=== PATIENT | female | born 1965 | race Two or more races ===

== ENCOUNTER 2018-04-02 10:15 | Outpatient (AMBR) | payer MEDICARE, MEDICAID, SELFPAY ==
--- NOTE | 2018-04-02 12:29 | PTNOTE_ITS ---
PT OP Initial Eval Patient Information Visit Reasons: lower leg Medical Diagnosis: M15.9 Treatment Dx #1: BLE Pain Treatment Dx #2: BLE Weakness Start of Care: 04/02/18 Date of Onset: 3 years ago Initial Assessment Subjective Pt is a 52 y/o female c/o chronic LEs pain started several years ago due to RA. Pt mention that she is bone on bone in the L knee and R ankle. Pt pain is 8/10 and because of the pain Pt has difficulty walking, transfer, standing, cooking, and cleaning. Pt mention that she is under the care of a oncologist orthopedic spcialist in [place] which she plans to get a total knee replacement in a few wks. Pt mention that her muscle atrophy on the left is getting worse but it's lack of use due to pain. Objective Left Knee AROM: 0 deg to 110 deg with pain Right Knee AROM: 0 deg to 120 deg Left Ankle AROM: all motions are WFL Right Ankle AROM: all motions are limited due to pain LEFS score: 90 % disabled Bilateral Knee MMTs: grossly 3-/5 Bilateral Ankle MMTs: grossly 3-/5 Assessment Pt demonstrate limited left knee and right ankle mobility deficits leading to decline function and difficulty with ambulation. During the evaluation Pt mention that she will be getting a knee replacement in a few weeks. Pt educated that if the knee replacement is going to be done soon Pt should wait until completion of the procedure prior to starting physical therapy due to having a hard therapy cap via medicare. Pt should save all visits to be able to perform aggressive rehab post op. Pt agree and will hold off on PT until completion of her operation. Pt was evaluated and d/c, thank you for your referrals. 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
== END 2018-04-02 11:26 | disposition home or self-care (01) ==
LOC: HODPTST 10:20
PROVIDERS: PCP Internal Medicine; Referring Provider Internal Medicine; Visit Provider Internal Medicine Rheumatology
DX: M79.662 Pain in left lower leg (principal); M79.661 Pain in right lower leg; R53.1 Weakness; G89.29 Other chronic pain; R26.2 Difficulty in walking, not elsewhere classified; I10 Essential (primary) hypertension
CPT/HCPCS: 97162; G8978; G8979; G8980

== ENCOUNTER → 2024-05-20 | Outpatient (CLI) | payer MEDICARE, MEDICAID, SELFPAY ==
[2024-05-20 09:33] LABS: Basophils # (Auto) 0.1 Thou/mm3 (0.0-0.2); Basophils % (Auto) 1 % (0-2.5); Eosinophils # (Auto) 0.2 Thou/mm3 (0.0-0.5); Eosinophils % (Auto) 2 % (0-10); Hematocrit 41.1 % (36.0-46.0); Immature Granulocytes % (Auto) 3 % (0-0); Lymphocytes # (Auto) 2.8 Thou/mm3 (1.0-4.8); Lymphocytes % (Auto) 27 % (10-50); Mean Corpuscular HGB Conc 31.6 g/dl (31.0-37.0); Mean Corpuscular Hemoglobin 26.1 pg (25.0-35.0); Mean Corpuscular Volume 83 fL (80-100); Monocytes # (Auto) 0.6 Thou/mm3 (0.0-0.8); Monocytes % (Auto) 6 % (0-12); Neutrophils # (Auto) 6.3 Thou/mm3 (1.8-7.7); Neutrophils % (Auto) 62 % (37-80); Nucleated Red Blood Cell % 0 /100 WBC (0); Platelet Count 287 Thou/mm3 (140-440); RDW Standard Deviation 51.1 fL (36.4-46.3); Red Blood Count 4.98 Miln/mm3 (4.00-5.20); White Blood Count 10.2 Thou/mm3 (3.6-11.0)
[2024-05-20 09:57] LABS: Sed Rate (ESR) 37 mm/hr (0-30)
[2024-05-20 09:58] LABS: Vitamin B12 649 pg/mL (211-911)
[2024-05-20 09:59] LABS: Alanine Aminotransferase 22 U/L (10-49); Albumin, Serum 4.1 gm/dL (3.5-5.0); Alkaline Phosphatase 132 U/L (46-116); Anion Gap 6 (7-16); Aspartate Amino Transferase 16 U/L (0-34); BUN/Creatinine Ratio 23 Ratio (12-20); Bilirubin,Total 0.4 mg/dL (0.3-1.2); Blood Urea Nitrogen 16 mg/dL (9-23); C-Reactive Protein 3.3 mg/dL (0.0-0.9); Calcium 9.1 mg/dL (8.3-10.6); Calcium (Corrected) 9.1 mg/dL (8.5-10.1); Carbon Dioxide 23.7 mMol/L (20.0-31.0); Chloride 108 mMol/L (98-107); Creatinine (Component) 0.7 mg/dL (0.6-1.3); Free T3 2.6 pg/mL (2.3-4.2); Free T4 (Free Thyroxine) 1.37 ng/dL (0.89-1.76); Globulin 2.1 gm/dL (2.3-3.5); Glucose 80 mg/dL (74-106); Osmolality,Calculated 275 (275-295); Potassium 4.2 mMol/L (3.4-5.1); Sodium 138 mMol/L (136-145); Thyroid Stimulating Hormone 3.68 uIU/mL (0.55-4.78); Total Protein 6.2 gm/dL (5.7-8.2); eGFR > 60 See Note
[2024-05-25 07:38] LABS: Vitamin D, 25-OH, D2 <4 ng/mL; Vitamin D, 25-OH, D3 38 ng/mL; Vitamin D, 25-OH, Total 38 ng/mL (30-100)
== END | disposition home or self-care (01) ==
LOC: COPL 08:41
PROVIDERS: PCP Family Medicine; Referring Provider Nurse Practitioner Family; Visit Provider Nurse Practitioner Family
DX: M05.79 Rheumatoid arthritis with rheumatoid factor of multiple sites without organ or systems involvement (principal); R53.83 Other fatigue; E03.9 Hypothyroidism, unspecified
CPT/HCPCS: 36415; 80053; 82306; 82607; 84439; 84443; 84481; 85025; 85652; 86140

== ENCOUNTER → 2024-06-16 | Outpatient (CLI) | payer MEDICARE, MEDICAID, SELFPAY ==
--- NOTE | 2024-06-16 07:45 | XR_ITS ---
Examination: Ultrasound soft tissue extremity left groin TECHNIQUE: By resolution grayscale sonographic images soft tissue left groin Exam date and time: June 16, 2024 0751 hours Indications left groin pain and swelling beginning 2 months ago. FINDINGS: Small lymph nodes in the left groin, the largest 17 x 16 mm IMPRESSION: Small lymph nodes in the left groin
[2024-06-16 08:36] LABS: Collection Type, Urine Clean Catch; RBC,Urine 0 /hpf (0-3)
[2024-06-16 09:20] LABS: Bilirubin,Urine Negative (Negative); Blood,Urine Negative (Negative); Clarity,Urine Clear (Clear/Hazy); Color,Urine Lt-Yellow (Lt Yel-Yel); Culture Indicated,Urine Not Indicated; Glucose, Urine Negative (Negative); Ketones,Urine Negative (Negative); Leukocyte Esterase,Urine Negative (Negative); Nitrite,Urine Negative (Negative); PH,Urine 6.5 (5.0-7.0); Protein,Urine Negative (Neg - Trace); Specific Gravity,Urine 1.012 (1.001-1.035); Squamous Epithelial Cell,Urine < 1 /hpf (0-5); Urobilinogen,Urine Negative mg/dL (0.0-1.0); WBC,Urine 2 /hpf (0-5)
[2024-06-16 09:33] LABS: Free T4 (Free Thyroxine) 1.41 ng/dL (0.89-1.76); Thyroid Stimulating Hormone 3.45 uIU/mL (0.55-4.78)
== END | disposition home or self-care (01) ==
LOC: CDIM 07:26 → COPL 08:08
PROVIDERS: Referring Provider Nurse Practitioner Family; Visit Provider Radiology Diagnostic Radiology
DX: R59.9 Enlarged lymph nodes, unspecified (principal); E03.9 Hypothyroidism, unspecified
CPT/HCPCS: 36415; 76882; 81001; 84439; 84443

== ENCOUNTER → 2024-07-07 | Outpatient (CLI) | payer MEDICARE, MEDICAID, SELFPAY ==
--- NOTE | 2024-07-07 16:30 | XR_ITS ---
Examination: Ultrasound soft tissue extremity left mid back TECHNIQUE: By resolution grayscale sonographic images soft tissue back Exam date and time: July 07, 2024 1643 hours INDICATIONS: Left outer mid back pain and tenderness note is beginning 3 months ago FINDINGS: Hypoechoic mass at the area concern, multiple, the largest 8 x 5 x 8 mm Also small lymph node in the soft tissue mid back on the left 6 x 4 x 7 mm IMPRESSION: BI-RADS Category 3: Probably benign findings Small soft tissue masses most consistent with lipomas in the soft tissue left back at the area concern, recommend continued 3-6 month follow-up ultrasound soft tissue
== END | disposition home or self-care (01) ==
LOC: CDIM 16:10
PROVIDERS: Referring Provider Nurse Practitioner Family; Visit Provider Nurse Practitioner Family
DX: R22.2 Localized swelling, mass and lump, trunk (principal)
CPT/HCPCS: 76604

== ENCOUNTER → 2024-07-29 | Outpatient (CLI) | payer MEDICARE, MEDICAID, SELFPAY ==
--- NOTE | 2024-07-29 09:28 | XR_ITS ---
Examination: PA lateral chest 2 views TECHNIQUE: Upright PA lateral chest 2 views Exam date and time: July 29, 2023 0948 hours Comparison May 04, 2024 INDICATIONS: Diagnosis COPD, coughing 2 weeks. FINDINGS: Normal heart size Scarring in the lingular segment No lobar pneumonia or pulmonary edema Prominent osteopenia IMPRESSION: No lobar pneumonia or pulmonary edema
[2024-07-29 10:41] LABS: Collection Type, Urine Clean Catch
[2024-07-29 10:57] LABS: Free T3 2.2 pg/mL (2.3-4.2); Free T4 (Free Thyroxine) 1.48 ng/dL (0.89-1.76); Thyroid Stimulating Hormone 3.58 uIU/mL (0.55-4.78)
[2024-07-29 11:37] LABS: Bilirubin,Urine Negative (Negative); Blood,Urine Negative (Negative); Clarity,Urine Clear (Clear/Hazy); Color,Urine Colorless (Lt Yel-Yel); Culture Indicated,Urine Not Indicated; Glucose, Urine Negative (Negative); Ketones,Urine Negative (Negative); Leukocyte Esterase,Urine Positive (Negative); Nitrite,Urine Negative (Negative); Protein,Urine Negative (Neg - Trace); RBC,Urine 1 /hpf (0-3); Specific Gravity,Urine 1.008 (1.001-1.035); Squamous Epithelial Cell,Urine 1 /hpf (0-5); Urobilinogen,Urine Negative mg/dL (0.0-1.0); WBC,Urine 5 /hpf (0-5)
== END | disposition home or self-care (01) ==
LOC: COPL 09:20
PROVIDERS: Internal Medicine; PCP Nurse Practitioner Family; Referring Provider Internal Medicine; Visit Provider Radiology Diagnostic Radiology
DX: J44.0 Chronic obstructive pulmonary disease with (acute) lower respiratory infection (principal); J20.9 Acute bronchitis, unspecified; J47.9 Bronchiectasis, uncomplicated; J84.10 Pulmonary fibrosis, unspecified; R91.8 Other nonspecific abnormal finding of lung field; R06.02 Shortness of breath; R05.3 Chronic cough; E03.9 Hypothyroidism, unspecified
CPT/HCPCS: 36415; 71046; 81001; 84439; 84443; 84481

== ENCOUNTER → 2024-08-20 | Outpatient (CLI) | payer MEDICARE, MEDICAID, SELFPAY ==
[2024-08-20 11:39] LABS: Basophils # (Auto) 0.1 Thou/mm3 (0.0-0.2); Basophils % (Auto) 1 % (0-2.5); Eosinophils # (Auto) 0.2 Thou/mm3 (0.0-0.5); Eosinophils % (Auto) 2 % (0-10); Hematocrit 43.8 % (36.0-46.0); Hemoglobin 13.9 g/dL (12.0-16.0); Immature Granulocytes % (Auto) 3 % (0-0); Immature Granulocytes Auto 0.38 Thou/mm3 (0.00-0.00); Lymphocytes # (Auto) 2.8 Thou/mm3 (1.0-4.8); Lymphocytes % (Auto) 24 % (10-50); Mean Corpuscular HGB Conc 31.7 g/dl (31.0-37.0); Mean Corpuscular Hemoglobin 26.8 pg (25.0-35.0); Mean Corpuscular Volume 84 fL (80-100); Monocytes # (Auto) 0.7 Thou/mm3 (0.0-0.8); Monocytes % (Auto) 6 % (0-12); Neutrophils # (Auto) 7.4 Thou/mm3 (1.8-7.7); Neutrophils % (Auto) 64 % (37-80); Nucleated Red Blood Cell % 0 /100 WBC (0); Platelet Count 253 Thou/mm3 (140-440); RDW Standard Deviation 52.7 fL (36.4-46.3); Red Blood Count 5.19 Miln/mm3 (4.00-5.20); White Blood Count 11.6 Thou/mm3 (3.6-11.0)
[2024-08-20 11:53] LABS: Alanine Aminotransferase 27 U/L (10-49); Albumin, Serum 4.3 gm/dL (3.5-5.0); Alkaline Phosphatase 142 U/L (46-116); Anion Gap 11 (7-16); Aspartate Amino Transferase 16 U/L (0-34); BUN/Creatinine Ratio 18 Ratio (12-20); Bilirubin,Total 0.5 mg/dL (0.3-1.2); Blood Urea Nitrogen 11 mg/dL (9-23); C-Reactive Protein 3.7 mg/dL (0.0-0.9); Calcium 9.5 mg/dL (8.3-10.6); Calcium (Corrected) 9.5 mg/dL (8.5-10.1); Carbon Dioxide 24.3 mMol/L (20.0-31.0); Chloride 106 mMol/L (98-107); Creatinine (Component) 0.6 mg/dL (0.6-1.3); Free T3 2.5 pg/mL (2.3-4.2); Free T4 (Free Thyroxine) 1.49 ng/dL (0.89-1.76); Globulin 2.2 gm/dL (2.3-3.5); Glucose 87 mg/dL (74-106); Osmolality,Calculated 279 (275-295); Potassium 3.8 mMol/L (3.4-5.1); Sodium 141 mMol/L (136-145); Thyroid Stimulating Hormone 3.34 uIU/mL (0.55-4.78); Total Protein 6.5 gm/dL (5.7-8.2); eGFR > 60 See Note
[2024-08-20 12:13] LABS: Sed Rate (ESR) 44 mm/hr (0-30)
== END | disposition home or self-care (01) ==
LOC: COPL 10:43
PROVIDERS: PCP Internal Medicine; Referring Provider Nurse Practitioner Family; Visit Provider Nurse Practitioner Family
DX: E03.9 Hypothyroidism, unspecified (principal); M05.79 Rheumatoid arthritis with rheumatoid factor of multiple sites without organ or systems involvement
CPT/HCPCS: 36415; 80053; 84439; 84443; 84481; 85025; 85652; 86140

== ENCOUNTER → 2024-09-21 | Outpatient (CLI) | payer MEDICARE, MEDICAID, SELFPAY ==
[2024-09-21 11:40] LABS: Collection Type, Urine Clean Catch
[2024-09-21 12:13] LABS: Vitamin B12 547 pg/mL (211-911); Vitamin D 25 Hydroxy Total 36.3 ng/mL (7.3-40.2)
[2024-09-21 12:14] LABS: Free T3 3.2 pg/mL (2.3-4.2); Free T4 (Free Thyroxine) 1.56 ng/dL (0.89-1.76); Thyroid Stimulating Hormone 1.07 uIU/mL (0.55-4.78)
[2024-09-21 12:14] LABS: Bilirubin,Urine Negative (Negative); Blood,Urine Negative (Negative); Clarity,Urine Clear (Clear/Hazy); Color,Urine Colorless (Lt Yel-Yel); Culture Indicated,Urine Not Indicated; Glucose, Urine Negative (Negative); Ketones,Urine Negative (Negative); Leukocyte Esterase,Urine Positive (Negative); Nitrite,Urine Negative (Negative); Protein,Urine Negative (Neg - Trace); RBC,Urine 1 /hpf (0-3); Specific Gravity,Urine 1.004 (1.001-1.035); Squamous Epithelial Cell,Urine < 1 /hpf (0-5); Urobilinogen,Urine Negative mg/dL (0.0-1.0); WBC,Urine 2 /hpf (0-5)
[2024-09-28 07:03] LABS: Vitamin B1 (Thiamine)* 12 nmol/L (8-30); Vitamin B6, Plasma* 6.4 ng/mL (2.1-21.7)
== END | disposition home or self-care (01) ==
LOC: COPL 10:53
PROVIDERS: PCP Internal Medicine; Referring Provider Internal Medicine; Visit Provider Nurse Practitioner Family
DX: E03.9 Hypothyroidism, unspecified (principal)
CPT/HCPCS: 36415; 81001; 82306; 82607; 84207; 84425; 84439; 84443; 84481

== ENCOUNTER → 2024-10-23 | Outpatient (CLI) | payer MEDICARE, MEDICAID, SELFPAY ==
[2024-10-23 11:02] LABS: Free T3 2.4 pg/mL (2.3-4.2); Free T4 (Free Thyroxine) 1.37 ng/dL (0.89-1.76); Thyroid Stimulating Hormone 4.86 uIU/mL (0.55-4.78)
[2024-10-30 11:21] LABS: Sjogren's antibody (SS-A) <1.0 NEG AI (<1.0 NEGATIVE)
[2024-11-02 07:14] LABS: ANA Pattern NUCLEAR, CENTROMERE; ANA Pattern NUCLEAR, HOMOGENEOUS; ANA Screen, IFA POSITIVE (NEGATIVE); Sjogren's Antibody (SS-B) <1.0 NEG AI (<1.0 NEGATIVE)
== END | disposition home or self-care (01) ==
PROVIDERS: PCP Internal Medicine; Referring Provider General Practice; Visit Provider General Practice
DX: E03.9 Hypothyroidism, unspecified (principal); L30.9 Dermatitis, unspecified
CPT/HCPCS: 36415; 84439; 84443; 84481; 86038; 86235

== ENCOUNTER → 2024-11-03 | Outpatient (CLI) | payer MEDICARE, MEDICAID, SELFPAY ==
[2024-11-03 10:04] LABS: Collection Type, Urine Clean Catch; RBC,Urine 0 /hpf (0-3); Squamous Epithelial Cell,Urine 0 /hpf (0-5)
[2024-11-03 10:28] LABS: Basophils # (Auto) 0.1 Thou/mm3 (0.0-0.2); Basophils % (Auto) 1 % (0-2.5); Eosinophils # (Auto) 0.2 Thou/mm3 (0.0-0.5); Eosinophils % (Auto) 2 % (0-10); Hemoglobin 13.3 g/dL (12.0-16.0); Immature Granulocytes % (Auto) 2 % (0-0); Immature Granulocytes Auto 0.22 Thou/mm3 (0.00-0.00); Lymphocytes % (Auto) 24 % (10-50); Mean Corpuscular HGB Conc 32.4 g/dl (31.0-37.0); Mean Corpuscular Hemoglobin 26.9 pg (25.0-35.0); Mean Corpuscular Volume 83 fL (80-100); Monocytes # (Auto) 0.7 Thou/mm3 (0.0-0.8); Monocytes % (Auto) 5 % (0-12); Neutrophils # (Auto) 8.1 Thou/mm3 (1.8-7.7); Neutrophils % (Auto) 66 % (37-80); Nucleated Red Blood Cell % 0 /100 WBC (0); Platelet Count 294 Thou/mm3 (140-440); RDW Standard Deviation 48.8 fL (36.4-46.3); Red Blood Count 4.95 Miln/mm3 (4.00-5.20); White Blood Count 12.2 Thou/mm3 (3.6-11.0)
[2024-11-03 10:44] LABS: Alanine Aminotransferase 22 U/L (10-49); Albumin, Serum 4.1 gm/dL (3.5-5.0); Albumin/Globulin Ratio 1.6 (1.2-2.2); Alkaline Phosphatase 128 U/L (46-116); Anion Gap 8 (7-16); Aspartate Amino Transferase 20 U/L (0-34); BUN/Creatinine Ratio 17 Ratio (12-20); Bilirubin,Total 0.7 mg/dL (0.3-1.2); Blood Urea Nitrogen 10 mg/dL (9-23); C-Reactive Protein 3.4 mg/dL (0.0-0.9); Calcium 8.5 mg/dL (8.3-10.6); Calcium (Corrected) 8.5 mg/dL (8.5-10.1); Carbon Dioxide 24.4 mMol/L (20.0-31.0); Chloride 107 mMol/L (98-107); Creatinine (Component) 0.6 mg/dL (0.6-1.3); Globulin 2.5 gm/dL (2.3-3.5); Glucose 85 mg/dL (74-106); Osmolality,Calculated 275 (275-295); Potassium 3.4 mMol/L (3.4-5.1); Sodium 139 mMol/L (136-145); Total Protein 6.6 gm/dL (5.7-8.2); eGFR > 60 See Note
[2024-11-03 10:54] LABS: Bilirubin,Urine Negative (Negative); Blood,Urine Negative (Negative); Clarity,Urine Clear (Clear/Hazy); Color,Urine Colorless (Lt Yel-Yel); Glucose, Urine Negative (Negative); Ketones,Urine Negative (Negative); Leukocyte Esterase,Urine Negative (Negative); Nitrite,Urine Negative (Negative); Protein,Urine Negative (Neg - Trace); Specific Gravity,Urine 1.004 (1.001-1.035); Urobilinogen,Urine Negative mg/dL (0.0-1.0); WBC,Urine < 1 /hpf (0-5)
[2024-11-03 10:58] LABS: Creatinine,Random Urine 24 mg/dL (30-125); Protein Total, Random Urine < 6 mg/dL (1-14)
[2024-11-03 11:06] LABS: Sed Rate (ESR) 64 mm/hr (0-30)
== END | disposition home or self-care (01) ==
LOC: COPL 08:52
PROVIDERS: PCP Internal Medicine; Referring Provider Internal Medicine Rheumatology; Visit Provider Internal Medicine Rheumatology
DX: M05.79 Rheumatoid arthritis with rheumatoid factor of multiple sites without organ or systems involvement (principal); N39.0 Urinary tract infection, site not specified
CPT/HCPCS: 36415; 80053; 81001; 82570; 84156; 85025; 85652; 86140; 87077; 87086; 87186

== ENCOUNTER → 2024-11-18 | Outpatient (CLI) | payer MEDICARE, MEDICAID, SELFPAY ==
[2024-11-18 09:13] LABS: Misc Send Out* See Sep Rpt
[2024-11-18 12:28] LABS: Cocci Serology, IgM Negative (Negative)
[2024-11-20 11:21] LABS: Cocci Serology, IgG Negative (Negative)
[2024-11-26 13:53] LABS: Sm Antibody <1.0 NEG AI (<1.0 NEGATIVE)
[2024-11-30 07:09] LABS: ANA Pattern NUCLEAR, CENTROMERE; ANA Pattern NUCLEAR, HOMOGENEOUS; ANA Screen, IFA POSITIVE (NEGATIVE); ANA Titer 1:40 titer; Complement Component C3* 165 mg/dL (83-193); Complement Component C4c* 11 mg/dL (15-57); DNA (ds) Antibody* 1 IU/mL; Sm/RNP Antibody <1.0 NEG AI (<1.0 NEGATIVE)
== END | disposition home or self-care (01) ==
PROVIDERS: PCP Family Medicine; Referring Provider Nurse Practitioner Family; Visit Provider Nurse Practitioner Family
DX: M05.79 Rheumatoid arthritis with rheumatoid factor of multiple sites without organ or systems involvement (principal); R76.8 Other specified abnormal immunological findings in serum
CPT/HCPCS: 36415; 86038; 86160; 86225; 86235; 86331; 86635

== ENCOUNTER → 2024-11-24 | Outpatient (CLI) | payer MEDICARE, MEDICAID, SELFPAY ==
[2024-11-24 12:03] LABS: Free T3 2.3 pg/mL (2.3-4.2); Free T4 (Free Thyroxine) 1.26 ng/dL (0.89-1.76); Thyroid Stimulating Hormone 1.79 uIU/mL (0.55-4.78)
== END | disposition home or self-care (01) ==
PROVIDERS: PCP Internal Medicine; Referring Provider Nurse Practitioner; Visit Provider Nurse Practitioner
DX: E03.9 Hypothyroidism, unspecified (principal)
CPT/HCPCS: 36415; 84439; 84443; 84481

== ENCOUNTER 2024-11-27 08:42 | Outpatient (AMB) | payer MEDICARE, MEDICAID, SELFPAY ==
[2024-11-27 08:58] VITALS: BP 180/91; PULSE 90; RESP 17; TEMP 36.9; O2SAT 93; BMI 33.2
--- NOTE | 2024-11-27 08:58 | ORTHONT_ITS ---
Vital signs 11/27/24 08:58 Height 1.5 m Height Method Stated Weight 74.559 kg Weight Measurement Method Standing Scale BMI 33.2 BP 180/91 H Blood Pressure Source Automatic Cuff Blood Pressure Location Right Upper Arm Position Sitting Respiration 17 Pulse 90 Pulse Source Monitor Temp 98.4 F Temp Source Temporal Artery Scan Pulse Oximetry (%) 93 L Oxygen Delivery Method Room Air Med/Allergies Allergies & Medications Allergies ciprofloxacin (From Cipro) Allergy (Severe, Verified 11/27/24 08:59) Cramping of the Muscles ALFALFA PRODUCTS Allergy (Severe, Uncoded 11/27/24 08:59) SEVERE HIVES Medication Reconciliation cyclosporine 0.05 % eye drops in a dropperette (Restasis) 1 drp ophthalmic (eye) Q12H DRY EYES 09/22/23 [History Confirmed 11/27/24] hydralazine 10 mg tablet 10 mg PO QPM HTN 09/22/23 [History Confirmed 11/27/24] levothyroxine 125 mcg tablet (Synthroid) 125 mcg PO QDAY 09/22/23 [History Confirmed 11/27/24] prednisone 1 mg tablet 3.5 mg PO BID RA 09/22/23 [History Confirmed 11/27/24] amoxicillin 875 mg-potassium clavulanate 125 mg tablet 1 tab PO BID #14 tabs 09/27/23 [Rx Confirmed 11/27/24] doxycycline hyclate 100 mg tablet 100 mg PO BID #14 tabs 09/27/23 [Rx Confirmed 11/27/24] ipratropium 0.5 mg-albuterol 3 mg (2.5 mg base)/3 mL nebulization soln 3 ml inhalation Q8H PRN shortness of breath #90 mL 09/27/23 [Rx Confirmed 11/27/24] Exam Exam Patient is in no acute distress and is cooperative with the examination today. Breathing is nonlabored. In no respiratory distress. Patient has no paraspinal tenderness. Spinal deformity cannot be appreciated. The gait of the patient is nonantalgic Bilateral extremities were evaluated and demonstrates sensation intact to light touch. Palpable pedal pulses are present. No significant edema is present. Bilateral knees were examined and the patient has full strength and range of motion.. The right hip was examined. Patient was able to flex to 90 degrees, adduct to 30 degrees, abduct to 40 degrees, internally rotate to 10 degrees, and externally rotate to 20 degrees. Patient has a negative logroll. Stinchfield is negative. The patient is nontender diffusely to touch. The left hip was examined. Patient was able to flex to 90 degrees, adduct to 30 degrees, abduct to 40 degrees, internally rotate to 0 degrees, and externally rotate to 20 degrees. Patient has a negative logroll. The stinchfield is negative. An MRI of the left hip was reviewed. This demonstrates degenerative changes. There is no avascular necrosis Assessment and Plan Problem List (1) Rheumatoid arthritis involving left hip: Status: Acute Plan: Patient is a pleasant 59-year-old female with left hip rheumatoid arthritis. She reports that she has significant pain in her ankles as well which is limiting her weightbearing. I would like to get X-rays to better evaluate the arthritis We will see her back and likely pursue conservative means given her medical health Office Procedures GNS Level of Care Nursing/Assessment Patient Status: Initial/New Patient Nursing Assessment/Reassesment: Medication Reconciliation, Update PMH in EMR and Vital Signs Coordination of Care: Complex Care and Chronic Disease 1-5, Education Complex Pt/Fam, Consent,records obtained, informed consent, 1 Ins Authorization, Lab and Imaging orders, Results/Orders obtained and Staff clarify orders New Patient Charge New Patient Point Assignment: [id number] New Patient Point Charge: OLD TESTAMENT PROFESSOR Level 4 ([id number]) MA Intake Visit Data Collection New Patient or Established: Established Patient (seen at [facility] within 3 years) Reason for Visit:: LEFT HIP PAIN Seen by Clinical Staff ONLY (RN/MA): No Steam Turbine Assembler Required: No PCP or OBGYN visit in last 3 months: Yes Hx Now: No Do You Feel Safe at Home: Yes Authorities Contacted: N/A Questionairres Past Medical History Past Medical History Have you ever been diagnosed with any of the following: Cardiology Problems Congestive Heart Failure: No Hypertension: Yes Respiratory Problems Chronic Obstructive Pulmonary Disease (COPD): Yes Asthma: Yes Emphysema: Yes Pneumonia: Yes Tuberculosis: No Stomache/Intestinal Problems Gall Bladder Disease: Yes Gastroesophageal Reflux Disease: Yes Genital/Urinary Problems Renal Disease: No Kidney Stones: Yes Reproductive Problems Endometriosis: No Pelvic Inflammatory Disease: No Previous Pregnancies: Yes Musculoskeletal Problems Rheumatoid Arthritis: Yes Endocrine Problems Diabetes Mellitus Type 1: No Diabetes Mellitus Type 2: No Hypothyroidism: Yes Blood Problems Sickle Cell Disease: No Other Problems Hospitalization: No Down Syndrome: No Developmental Delay: No Falls: No Blood Transfusions: Yes Blood Transfusion Reaction: No Anesthesia Reactions: No MRSA: No VRSA: No Vancomycin-Resistant Enterococci: No Clostridium Difficile: No Cancer: No Subjective Visit Visit for: new patient and hip (LEFT HIP) Immunization / Flu Flu Vaccine in the Last 12 Months: No Flu Vaccine Exclusion Criteria: Refused by Patient History of Present Illness Chief complaint: Left hip pain Enedelia is a pleasant 59-year-old female with history of severe rheumatoid arthritis. She is on multiple Biologics in the past. She is now just on prednisone as she has had lung issues from the Remicade. She is at high risk for medical complications as she has medical issues that are quite severe. She is also in a electric wheelchair pretty much at all times. She does stand for transfers. She reports that she has severe ankle pain as well because of her rheumatoid arthritis and she does not think that she would be able to walk even if we were to fix her hip Personal History Red flag PMH: none Pain Pain level (0-10): 10 Pain duration: LESS THAN A YEAR Pain location: groin Pain quality: shocking Pain timing: increases with activity (WHILE WALKING ) Associated signs & symptoms: none Ambulatory data Ambulatory device: other (specify) (ELECTRIC WHEELCHAIR ) Walking distance (minutes): 1 Treatments Number of previous injections: 1 Improvement with previous injections: No Number of Physical Therapy sessions: 0 Improvement with NSAIDS: n/a Review of Systems Review of Systems: All systems negative unless otherwise noted in HPI.
--- NOTE | 2024-11-27 09:09 | XR_ITS ---
Examination:Left hip AP, lateral, AP pelvis 3 views Technique: Hip AP lateral, AP pelvis, 3 views Exam date and time:November 27, 2024 0913 hours INDICATIONS: Left hip pain beginning 7 months ago FINDINGS: Advanced left hip osteoarthritis, severe joint space narrowing Sclerosis involving the femoral head suspicious for avascular necrosis Prominent osteopenia Bones of the pelvis right hip intact Moderate narrowing right hip joint IMPRESSION: Advanced left hip osteoarthritis Suspicious for left femoral head avascular necrosis.
== END 2024-11-27 09:18 | disposition home or self-care (01) ==
PROVIDERS: PCP Internal Medicine Rheumatology; Referring Provider Internal Medicine Rheumatology; Supervising Provider Orthopaedic Surgery Adult Reconstructive Orthopaedic Surgery; Visit Provider Orthopaedic Surgery Adult Reconstructive Orthopaedic Surgery
DX: M06.852 Other specified rheumatoid arthritis, left hip (principal); M25.572 Pain in left ankle and joints of left foot; M25.571 Pain in right ankle and joints of right foot; I10 Essential (primary) hypertension; K21.9 Gastro-esophageal reflux disease without esophagitis; E03.9 Hypothyroidism, unspecified
CPT/HCPCS: 73502; 99204; G0463

== ENCOUNTER 2024-12-22 08:38 | Outpatient (AMB) | payer MEDICARE, MEDICAID, SELFPAY ==
[2024-12-22 08:56] VITALS: BP 149/93; PULSE 84; RESP 16; TEMP 36.7; O2SAT 97; BMI 33.6
--- NOTE | 2024-12-22 08:56 | PD.ORTHCLVIS ---
Vital signs 12/22/24 08:56 Height 1.5 m Height Method Stated Weight 75.75 kg Weight Measurement Method Estimated by Patient BMI 33.6 BP 149/93 H Blood Pressure Source Automatic Cuff Blood Pressure Location Left Upper Arm Position Sitting Respiration 16 Pulse 84 Pulse Source Monitor Temp 98.1 F Temp Source Temporal Artery Scan Pulse Oximetry (%) 97 Oxygen Delivery Method Room Air Med/Allergies Allergies & Medications Allergies ciprofloxacin (From Cipro) Allergy (Severe, Verified 12/22/24 08:57) Cramping of the Muscles ALFALFA PRODUCTS Allergy (Severe, Uncoded 12/22/24 08:57) SEVERE HIVES Medication Reconciliation cyclosporine 0.05 % eye drops in a dropperette (Restasis) 1 drp ophthalmic (eye) Q12H DRY EYES 09/22/23 [History Confirmed 12/22/24] hydralazine 10 mg tablet 10 mg PO QPM HTN 09/22/23 [History Confirmed 12/22/24] levothyroxine 125 mcg tablet (Synthroid) 125 mcg PO QDAY 09/22/23 [History Confirmed 12/22/24] prednisone 1 mg tablet 3.5 mg PO BID RA 09/22/23 [History Confirmed 12/22/24] amoxicillin 875 mg-potassium clavulanate 125 mg tablet 1 tab PO BID #14 tabs 09/27/23 [Rx Confirmed 12/22/24] doxycycline hyclate 100 mg tablet 100 mg PO BID #14 tabs 09/27/23 [Rx Confirmed 12/22/24] ipratropium 0.5 mg-albuterol 3 mg (2.5 mg base)/3 mL nebulization soln 3 ml inhalation Q8H PRN shortness of breath #90 mL 09/27/23 [Rx Confirmed 12/22/24] Exam Exam Patient is in no acute distress and is cooperative with the examination today. Breathing is nonlabored. In no respiratory distress. Patient has no paraspinal tenderness. Spinal deformity cannot be appreciated. The gait of the patient is nonantalgic Bilateral extremities were evaluated and demonstrates sensation intact to light touch. Palpable pedal pulses are present. No significant edema is present. Bilateral knees were examined and the patient has full strength and range of motion.. The right hip was examined. Patient was able to flex to 90 degrees, adduct to 30 degrees, abduct to 40 degrees, internally rotate to 10 degrees, and externally rotate to 20 degrees. Patient has a negative logroll. Stinchfield is negative. The patient is nontender diffusely to touch. The left hip was examined. Patient was able to flex to 90 degrees, adduct to 30 degrees, abduct to 40 degrees, internally rotate to 0 degrees, and externally rotate to 20 degrees. Patient has a negative logroll. The stinchfield is negative. An MRI of the left hip was reviewed. This demonstrates degenerative changes. There is no avascular necrosis X-rays of the left demonstrates complete obliteration of the superior and inferior joint space consistent with rheumatoid arthritis Assessment and Plan Problem List (1) Rheumatoid arthritis involving left hip: Status: Acute Plan: Patient is a pleasant 59-year-old female with left hip rheumatoid arthritis. She reports that she has significant pain in her ankles as well which is limiting her weightbearing. She has significant left hip rheumatoid arthritis with degenerative changes. We discussed total hip replacement is reasonable option. She does have significant medical issues and is on home oxygen. She is not sure how well she will do and is seeing a cost estimating clerk in a month. We discussed that the main reason to do this with IV pain relief as her function is already quite limited. We also discussed that she is at high risk for complications given her rheumatoid arthritis history Office Procedures GNS Level of Care Nursing/Assessment Patient Status: Established Patient Nursing Assessment/Reassesment: Medication Reconciliation, Update PMH in EMR and Vital Signs Coordination of Care: Complex Care and Chronic Disease 1-5, Education Complex Pt/Fam, Consent,records obtained, informed consent, Results/Orders obtained and Staff clarify orders Established Patient Charge Established Patient Point Assignment: 95 Established Patient Point Charge: Level 3 (80-115) MA Intake Visit Data Collection New Patient or Established: Established Patient (seen at [facility] within 3 years) Reason for Visit:: LEFT HIP XRAYS Seen by Clinical Staff ONLY (RN/MA): No Astronomy Teacher Required: No PCP or OBGYN visit in last 3 months: Yes Hx Now: No Do You Feel Safe at Home: Yes Authorities Contacted: N/A Questionairres Past Medical History Past Medical History Have you ever been diagnosed with any of the following: Cardiology Problems Congestive Heart Failure: No Hypertension: Yes Respiratory Problems Chronic Obstructive Pulmonary Disease (COPD): Yes Asthma: Yes Emphysema: Yes Pneumonia: Yes Tuberculosis: No Smoking: No Smoking Exposure: No Tobacco Use: No Stomache/Intestinal Problems Gall Bladder Disease: Yes Gastroesophageal Reflux Disease: Yes Genital/Urinary Problems Renal Disease: No Kidney Stones: Yes Reproductive Problems Endometriosis: No Pelvic Inflammatory Disease: No Previous Pregnancies: Yes Musculoskeletal Problems Rheumatoid Arthritis: Yes Endocrine Problems Diabetes Mellitus Type 1: No Diabetes Mellitus Type 2: No Hypothyroidism: Yes Blood Problems Sickle Cell Disease: No Other Problems Hospitalization: No Down Syndrome: No Developmental Delay: No Falls: No Blood Transfusions: Yes Blood Transfusion Reaction: No Anesthesia Reactions: No MRSA: No VRSA: No Vancomycin-Resistant Enterococci: No Clostridium Difficile: No Cancer: No Subjective Visit Visit for: follow up visit and hip (LEFT HIP) Immunization / Flu Flu Vaccine in the Last 12 Months: No Flu Vaccine Exclusion Criteria: Refused by Patient History of Present Illness Chief complaint: Left hip pain Enedelai is a pleasant 59-year-old female with history of severe rheumatoid arthritis. She is on multiple Biologics in the past. She is now just on prednisone as she has had lung issues from the Remicade. She is at high risk for medical complications as she has medical issues that are quite severe. She is also in a electric wheelchair pretty much at all times. She does stand for transfers. She reports that she has severe ankle pain as well because of her rheumatoid arthritis and she does not think that she would be able to walk even if we were to fix her hip Personal History Red flag PMH: none Pain Pain level (0-10): 10 Pain duration: LESS THAN A YEAR Pain location: groin Pain quality: sharp and other (specify) (SWELLING) Pain timing: increases with activity Associated signs & symptoms: none Ambulatory data Ambulatory device: other (specify) (WHEELCHAIR ) Walking distance (minutes): 5 Treatments Number of previous injections: 0 Improvement with previous injections: No Number of Physical Therapy sessions: 0 Improvement with NSAIDS: n/a Review of Systems Review of Systems: All systems negative unless otherwise noted in HPI.
== END 2024-12-22 09:47 | disposition home or self-care (01) ==
LOC: HODSRG 08:38
PROVIDERS: PCP Internal Medicine Rheumatology; Referring Provider Internal Medicine Rheumatology; Supervising Provider Orthopaedic Surgery Adult Reconstructive Orthopaedic Surgery; Visit Provider Orthopaedic Surgery Adult Reconstructive Orthopaedic Surgery
DX: M06.852 Other specified rheumatoid arthritis, left hip (principal); M25.572 Pain in left ankle and joints of left foot; M25.571 Pain in right ankle and joints of right foot; I10 Essential (primary) hypertension; J44.9 Chronic obstructive pulmonary disease, unspecified; K21.9 Gastro-esophageal reflux disease without esophagitis; E03.9 Hypothyroidism, unspecified
CPT/HCPCS: 99213; G0463

== ENCOUNTER → 2024-12-22 | Outpatient (CLI) | payer MEDICARE, MEDICAID, SELFPAY ==
[2024-12-22 11:13] LABS: Free T3 2.4 pg/mL (2.3-4.2); Free T4 (Free Thyroxine) 1.43 ng/dL (0.89-1.76); Thyroid Stimulating Hormone 2.58 uIU/mL (0.55-4.78)
== END | disposition home or self-care (01) ==
PROVIDERS: PCP Internal Medicine; Referring Provider Nurse Practitioner; Visit Provider Nurse Practitioner
DX: E03.9 Hypothyroidism, unspecified (principal)
CPT/HCPCS: 36415; 84439; 84443; 84481

== ENCOUNTER → 2025-01-20 | Outpatient (CLI) | payer MEDICARE, MEDICAID, SELFPAY ==
[2025-01-20 10:53] LABS: Glucose Estimated Average 120 mg/dL (80-131); Hemoglobin A1C 5.8 % Hgb (4.8-6.0)
[2025-01-20 11:10] LABS: Alanine Aminotransferase 18 U/L (10-49); Albumin, Serum 4.1 gm/dL (3.5-5.0); Albumin/Globulin Ratio 1.7 (1.2-2.2); Alkaline Phosphatase 125 U/L (46-116); Anion Gap 12 (7-16); Aspartate Amino Transferase 19 U/L (0-34); BUN/Creatinine Ratio 14 Ratio (12-20); Bilirubin,Direct < 0.1 mg/dL (0.0-0.3); Bilirubin,Total 0.4 mg/dL (0.3-1.2); Blood Urea Nitrogen 10 mg/dL (9-23); Calcium 9.0 mg/dL (8.3-10.6); Calcium (Corrected) 9.0 mg/dL (8.5-10.1); Carbon Dioxide 23.3 mMol/L (20.0-31.0); Chloride 108 mMol/L (98-107); Creatinine (Component) 0.7 mg/dL (0.6-1.3); Free T3 2.0 pg/mL (2.3-4.2); Free T4 (Free Thyroxine) 1.37 ng/dL (0.89-1.76); Globulin 2.4 gm/dL (2.3-3.5); Glucose 87 mg/dL (74-106); Osmolality,Calculated 282 (275-295); Potassium 4.2 mMol/L (3.4-5.1); Sodium 143 mMol/L (136-145); Thyroid Stimulating Hormone 4.31 uIU/mL (0.55-4.78); Total Protein 6.5 gm/dL (5.7-8.2); eGFR > 60 See Note
== END | disposition home or self-care (01) ==
LOC: COPL 08:39
PROVIDERS: PCP Internal Medicine; Referring Provider Specialist; Visit Provider Nurse Practitioner
DX: K76.0 Fatty (change of) liver, not elsewhere classified (principal); E03.9 Hypothyroidism, unspecified
CPT/HCPCS: 36415; 80053; 82248; 83036; 84439; 84443; 84481

== ENCOUNTER → 2025-02-12 | Outpatient (CLI) | payer MEDICARE, MEDICAID, SELFPAY ==
--- NOTE | 2025-02-12 08:45 | XR_ITS ---
Examination: Diagnostic digital mammography, unilateral, left Computer aided detection 3-D breast Tomosynthesis, unilateral Date and time of exam: February 12, 2025 0846 hours INDICATIONS: Mammogram 03/25/2024 14 mm focal asymmetry upper outer left breast anterior depth, 16 mm focal asymmetry upper outer left breast Technique: Nonmagnified MLO, CC views of the left breast have been obtained, reconstructed from 3-D Tomosynthesis images. R2 computer aided detection program utilized for evaluation of suspicious masses and/or abnormal calcifications. 3-D Tomosynthesis images obtained. Findings: Scattered areas of fibroglandular density 12 mm focal asymmetry remains outer left breast on the spot compression CC views Impression: BI-RADS category 0: Incomplete: Need additional imaging evaluation Recommend follow-up repeat left breast sonography
== END | disposition home or self-care (01) ==
LOC: CDIM 08:26
PROVIDERS: PCP Internal Medicine; Referring Provider Internal Medicine; Visit Provider Internal Medicine
DX: R92.8 Other abnormal and inconclusive findings on diagnostic imaging of breast (principal)
CPT/HCPCS: 77061; 77065; G0279

== ENCOUNTER → 2025-02-22 | Outpatient (CLI) | payer MEDICARE, MEDICAID, SELFPAY ==
[2025-02-22 11:13] LABS: Basophils # (Auto) 0.1 Thou/mm3 (0.0-0.2); Basophils % (Auto) 1 % (0-2.5); Eosinophils # (Auto) 0.3 Thou/mm3 (0.0-0.5); Eosinophils % (Auto) 2 % (0-10); Hematocrit 42.3 % (36.0-46.0); Hemoglobin 13.6 g/dL (12.0-16.0); Immature Granulocytes Auto 0.30 Thou/mm3 (0.00-0.00); Lymphocytes # (Auto) 2.6 Thou/mm3 (1.0-4.8); Lymphocytes % (Auto) 16 % (10-50); Mean Corpuscular HGB Conc 32.2 g/dl (31.0-37.0); Mean Corpuscular Hemoglobin 27.7 pg (25.0-35.0); Mean Corpuscular Volume 86 fL (80-100); Monocytes # (Auto) 0.9 Thou/mm3 (0.0-0.8); Monocytes % (Auto) 6 % (0-12); Neutrophils # (Auto) 12.4 Thou/mm3 (1.8-7.7); Neutrophils % (Auto) 75 % (37-80); Nucleated Red Blood Cell # 0.00 Thou/mm3 (0.00-0.00); Nucleated Red Blood Cell % 0 /100 WBC (0); Platelet Count 254 Thou/mm3 (140-440); RDW Standard Deviation 50.9 fL (36.4-46.3); Red Blood Count 4.91 Miln/mm3 (4.00-5.20); White Blood Count 16.6 Thou/mm3 (3.6-11.0)
[2025-02-22 11:37] LABS: Alanine Aminotransferase 19 U/L (10-49); Albumin, Serum 4.0 gm/dL (3.5-5.0); Albumin/Globulin Ratio 2.1 (1.2-2.2); Alkaline Phosphatase 128 U/L (46-116); Anion Gap 13 (7-16); Aspartate Amino Transferase 17 U/L (0-34); BUN/Creatinine Ratio 16 Ratio (12-20); Bilirubin,Total 0.6 mg/dL (0.3-1.2); Blood Urea Nitrogen 11 mg/dL (9-23); C-Reactive Protein 1.7 mg/dL (0.0-0.9); Calcium 9.4 mg/dL (8.3-10.6); Calcium (Corrected) 9.4 mg/dL (8.5-10.1); Carbon Dioxide 21.8 mMol/L (20.0-31.0); Chloride 106 mMol/L (98-107); Creatinine (Component) 0.7 mg/dL (0.6-1.3); Free T3 2.3 pg/mL (2.3-4.2); Globulin 1.9 gm/dL (2.3-3.5); Glucose 96 mg/dL (74-106); Osmolality,Calculated 280 (275-295); Potassium 3.8 mMol/L (3.4-5.1); Sodium 141 mMol/L (136-145); T4 (Thyroxine) 10.5 mcg/dL (4.5-10.9); Thyroid Stimulating Hormone 4.58 uIU/mL (0.55-4.78); Total Protein 5.9 gm/dL (5.7-8.2); eGFR > 60 See Note
[2025-02-22 11:38] LABS: Collection Type, Urine Clean Catch
[2025-02-22 11:49] LABS: Sed Rate (ESR) 48 mm/hr (0-30)
[2025-02-22 12:54] LABS: Bacteria,Urine Rare; Bilirubin,Urine Negative (Negative); Blood,Urine Negative (Negative); Clarity,Urine Clear (Clear/Hazy); Color,Urine Colorless (Lt Yel-Yel); Culture Indicated,Urine Not Indicated; Glucose, Urine Negative (Negative); Ketones,Urine Negative (Negative); Nitrite,Urine Negative (Negative); PH,Urine 6.5 (5.0-7.0); Protein,Urine Negative (Neg - Trace); RBC,Urine 1 /hpf (0-3); Specific Gravity,Urine 1.006 (1.001-1.035); Squamous Epithelial Cell,Urine 1 /hpf (0-5); Urobilinogen,Urine Negative mg/dL (0.0-1.0); WBC,Urine < 1 /hpf (0-5)
[2025-02-22 13:11] LABS: Leukocyte Esterase,Urine Trace (Negative)
== END | disposition home or self-care (01) ==
PROVIDERS: PCP Family Medicine; Visit Provider Nurse Practitioner Family
DX: E03.9 Hypothyroidism, unspecified (principal); M05.79 Rheumatoid arthritis with rheumatoid factor of multiple sites without organ or systems involvement; N39.0 Urinary tract infection, site not specified
CPT/HCPCS: 36415; 80053; 81001; 84436; 84443; 84481; 85025; 85652; 86140

== ENCOUNTER → 2025-03-11 | Outpatient (BNVA) | payer MEDICARE, MEDICAID, SELFPAY | END | disposition home or self-care (01) | PROVIDERS: PCP Family Medicine; Referring Provider Family Medicine; Visit Provider Urology | DX: N28.1 Cyst of kidney, acquired (principal); M06.9 Rheumatoid arthritis, unspecified; Z99.3 Dependence on wheelchair; E03.9 Hypothyroidism, unspecified; I10 Essential (primary) hypertension; E66.9 Obesity, unspecified; Z87.440 Personal history of urinary (tract) infections; K21.9 Gastro-esophageal reflux disease without esophagitis | CPT/HCPCS: 81003; 99212; G0463 ==

== ENCOUNTER → 2025-03-25 | Outpatient (CLI) | payer MEDICARE, MEDICAID, SELFPAY ==
[2025-03-25 10:11] LABS: Free T3 3.0 pg/mL (2.3-4.2); Free T4 (Free Thyroxine) 1.45 ng/dL (0.89-1.76); Thyroid Stimulating Hormone 1.94 uIU/mL (0.55-4.78); Vitamin B12 456 pg/mL (211-911)
[2025-03-31 07:05] LABS: Vitamin D, 25-OH, D2 <4 ng/mL; Vitamin D, 25-OH, D3 26 ng/mL; Vitamin D, 25-OH, Total 26 ng/mL (30-100)
== END | disposition home or self-care (01) ==
LOC: COPL 08:57
PROVIDERS: PCP Internal Medicine; Referring Provider Internal Medicine Rheumatology; Visit Provider Internal Medicine Rheumatology
DX: E03.9 Hypothyroidism, unspecified (principal); R53.83 Other fatigue
CPT/HCPCS: 36415; 82306; 82607; 84439; 84443; 84481

== ENCOUNTER → 2025-04-20 | Outpatient (CLI) | payer MEDICARE, MEDICAID, SELFPAY ==
--- NOTE | 2025-04-20 14:30 | XR_ITS ---
Examination: Breast ultrasound, unilateral, left complete Date and time of exam: April 20, 2025, 1413 hours INDICATIONS: Mammogram February 13, 2000 2512 mm focal asymmetry outer left breast Technique: Real-time moura scale ultrasonographic imaging performed left breast including all 4 quadrants as well as nipple retroareolar and axillary region. Findings: No cystic or solid mass IMPRESSION: BI-RADS Category 1 negative study
== END | disposition home or self-care (01) ==
LOC: CDIM 14:01
PROVIDERS: PCP Internal Medicine; Referring Provider Internal Medicine; Visit Provider Internal Medicine
DX: R92.8 Other abnormal and inconclusive findings on diagnostic imaging of breast (principal)
CPT/HCPCS: 76641

== ENCOUNTER → 2025-04-23 | Outpatient (CLI) | payer MEDICARE, MEDICAID, SELFPAY ==
[2025-04-23 11:13] LABS: Free T3 2.1 pg/mL (2.3-4.2); Thyroid Stimulating Hormone 2.81 uIU/mL (0.55-4.78)
[2025-04-23 11:21] LABS: T4 (Thyroxine) 10.1 mcg/dL (4.5-10.9)
== END | disposition home or self-care (01) ==
LOC: COPL 09:20
PROVIDERS: PCP Internal Medicine; Referring Provider Nurse Practitioner; Visit Provider Nurse Practitioner
DX: E03.9 Hypothyroidism, unspecified (principal)
CPT/HCPCS: 36415; 84436; 84443; 84481

== ENCOUNTER → 2025-05-24 | Outpatient (CLI) | payer MEDICARE, MEDICAID, SELFPAY ==
[2025-05-24 10:38] LABS: Basophils # (Auto) 0.1 Thou/mm3 (0.0-0.2); Basophils % (Auto) 1 % (0-2.5); Eosinophils # (Auto) 0.2 Thou/mm3 (0.0-0.5); Eosinophils % (Auto) 2 % (0-10); Hematocrit 42.6 % (36.0-46.0); Hemoglobin 13.5 g/dL (12.0-16.0); Immature Granulocytes Auto 0.17 Thou/mm3 (0.00-0.00); Lymphocytes # (Auto) 2.5 Thou/mm3 (1.0-4.8); Lymphocytes % (Auto) 23 % (10-50); Mean Corpuscular HGB Conc 31.7 g/dl (31.0-37.0); Mean Corpuscular Hemoglobin 27.8 pg (25.0-35.0); Mean Corpuscular Volume 88 fL (80-100); Monocytes # (Auto) 0.8 Thou/mm3 (0.0-0.8); Monocytes % (Auto) 7 % (0-12); Neutrophils # (Auto) 7.3 Thou/mm3 (1.8-7.7); Neutrophils % (Auto) 66 % (37-80); Nucleated Red Blood Cell # 0.00 Thou/mm3 (0.00-0.00); Nucleated Red Blood Cell % 0 /100 WBC (0); Platelet Count 292 Thou/mm3 (140-440); RDW Standard Deviation 51.4 fL (36.4-46.3); Red Blood Count 4.85 Miln/mm3 (4.00-5.20); White Blood Count 11.0 Thou/mm3 (3.6-11.0)
[2025-05-24 10:47] LABS: Alanine Aminotransferase 18 U/L (10-49); Albumin, Serum 4.2 gm/dL (3.5-5.0); Albumin/Globulin Ratio 1.7 (1.2-2.2); Alkaline Phosphatase 136 U/L (46-116); Anion Gap 12 (7-16); Aspartate Amino Transferase 16 U/L (0-34); BUN/Creatinine Ratio 18 Ratio (12-20); Bilirubin,Total 0.5 mg/dL (0.3-1.2); Blood Urea Nitrogen 11 mg/dL (9-23); C-Reactive Protein 1.6 mg/dL (0.0-0.9); Calcium 8.9 mg/dL (8.3-10.6); Calcium (Corrected) 8.9 mg/dL (8.5-10.1); Carbon Dioxide 24.3 mMol/L (20.0-31.0); Chloride 108 mMol/L (98-107); Creatinine (Component) 0.6 mg/dL (0.6-1.3); Free T3 2.3 pg/mL (2.3-4.2); Globulin 2.5 gm/dL (2.3-3.5); Glucose 85 mg/dL (74-106); Osmolality,Calculated 285 (275-295); Potassium 3.9 mMol/L (3.4-5.1); Sodium 144 mMol/L (136-145); Thyroid Stimulating Hormone 4.99 uIU/mL (0.55-4.78); Total Protein 6.7 gm/dL (5.7-8.2); eGFR > 60 See Note
[2025-05-24 10:48] LABS: T4 (Thyroxine) 10.0 mcg/dL (4.5-10.9)
[2025-05-24 11:12] LABS: Sed Rate (ESR) 51 mm/hr (0-30)
== END | disposition home or self-care (01) ==
PROVIDERS: PCP Family Medicine; Referring Provider Nurse Practitioner Family; Visit Provider Urology
DX: R39.9 Unspecified symptoms and signs involving the genitourinary system (principal); M05.79 Rheumatoid arthritis with rheumatoid factor of multiple sites without organ or systems involvement; E03.9 Hypothyroidism, unspecified
CPT/HCPCS: 36415; 80053; 84436; 84443; 84481; 85025; 85652; 86140; 87086

== ENCOUNTER → 2025-06-21 | Outpatient (CLI) | payer MEDICARE, MEDICAID, SELFPAY ==
[2025-06-21 11:44] LABS: Free T3 2.5 pg/mL (2.3-4.2); Free T4 (Free Thyroxine) 1.48 ng/dL (0.89-1.76); Thyroid Stimulating Hormone 3.68 uIU/mL (0.55-4.78)
== END | disposition home or self-care (01) ==
LOC: COPL 09:09
PROVIDERS: PCP Internal Medicine; Referring Provider Nurse Practitioner Family; Visit Provider Nurse Practitioner Family
DX: E03.9 Hypothyroidism, unspecified (principal)
CPT/HCPCS: 36415; 84439; 84443; 84481